=== PATIENT | female | born 1980 | race Caucasian/White ===

== ENCOUNTER 2019-06-17 12:51 | Emergency (ER) | payer OTHER ==
[~2019-06-17] VITALS: Ht 160 cm; Wt 90.7 kg
[~2019-06-17 12:51] MED LIST: ALPRAZOLAM1 MG PO; ANTIPYRINE-BENZ10 ML OTIC; BENADRYL25 MG PO; CETIRIZINE HCL10 MG PO; ESOMEPRAZOLE MAG; FLONASE2 SPRAY; IBUPROFEN800 MG PO; LANSOPRAZOLE30 MG PO; METFORMIN HCL1000 MG PO; NIACIN500 M1 PO; NORCO 5-325 TA1 EACH PO; PERCOCET 7.5-31 EACH PO; PRILOSEC20 MG PO; TRAZODONE HCL100 MG PO; ZOFRAN ODT4 MG PO
[2019-06-17] MEDS ORDERED: KEFLEX500 MG PO (17:29)
[2019-06-17] MEDS ORDERED: BACTRIM DS TAB1 EACH PO (17:29)
== END 2019-06-17 17:30 | disposition home or self-care (01) ==
LOC: ED 12:51
DX: L03.313 Cellulitis of chest wall (principal); F17.200 Nicotine dependence, unspecified, uncomplicated
CPT/HCPCS: 76604; 80053; 85025; 96374; 96375; 99283-25; J0690; J1885

== ENCOUNTER → 2020-10-17 | Emergency (ER) | payer OTHER ==
[~2020-10-17] VITALS: Ht 160 cm; Wt 81.6 kg
[~2020-10-17] MED LIST changes: +BACTRIM DS TAB1 EACH PO; +KEFLEX500 MG PO
--- NOTE | 2020-10-18 15:52 | EKG ---
[facility] [address] [address] [place], [place] [address] Signed Sinus tachycardia Otherwise normal ECG When compared with ECG of 12-NOV-2016 15:17, No significant change was found Confirmed by ERIK ROBIN DO ([id number]) on 10/18/2020 3:52:54 PM Electronically Signed By: ERIK ROBIN DO 10/18/20 1552 PATIENT NAME: OTONIEL JACKSON HANNA Electrocardiogram DATE OF : 76 PHYSICIAN: ERIK ROBIN DO REPORT #: [id number] REPORT IS CONFIDENTIAL AND NOT TO BE RELEASED WITHOUT AUTHORIZATION
== END ==
LOC: ED 20:14
DX: T45.0X1A Poisoning by antiallergic and antiemetic drugs, accidental (unintentional), initial encounter (principal); F17.200 Nicotine dependence, unspecified, uncomplicated
CPT/HCPCS: 80053; 80176; 81001; 84443; 84703; 85025; 93005; 93010; 99284-25

== ENCOUNTER 2021-11-07 07:36 | Emergency (ER) | payer OTHER ==
[~2021-11-07] VITALS: Ht 160 cm; Wt 99.1 kg
[2021-11-08] MEDS ORDERED: VENTOLIN HFA18 GM INH (16:25)
[2021-11-08] MEDS ORDERED: ADVIL200 MG PO (16:25)
[2021-11-08] MEDS ORDERED: PAXLOVID CO-PA1 EACH PO (18:58)
--- NOTE | 2021-11-11 13:41 | EKG ---
[facility] [address] [facility] [place], [place] [address] Signed Normal sinus rhythm Normal ECG When compared with ECG of 17-OCT-2020 20:31, No significant change was found Confirmed by GRETA FOLEY MD ([id number]) on 11/11/2021 1:41:05 PM Electronically Signed By: GRETA FOLEY MD 11/11/21 1341 PATIENT NAME: OTONIEL JACKSON HANNA Electrocardiogram DATE OF : 76 PHYSICIAN: GRETA FOLEY MD REPORT #: [id number] REPORT IS CONFIDENTIAL AND NOT TO BE RELEASED WITHOUT AUTHORIZATION
== END 2021-11-07 13:11 | disposition short-term general hospital (02) ==
LOC: ED 07:36
DX: U07.1 COVID-19 (principal); M54.14 Radiculopathy, thoracic region; F17.200 Nicotine dependence, unspecified, uncomplicated
CPT/HCPCS: 36415; 71045; 71260; 80048; 81001; 84484; 84703; 85025; 85379; 86140; 93005; 93010; 94640; 96375; 99285-25; C9803; J1170; J1885; J2060; Q9967; U0003

== ENCOUNTER 2021-11-08 15:32 | Emergency (ER) | payer OTHER ==
[~2021-11-08] VITALS: Ht 160 cm; Wt 99.1 kg
--- OUTSIDE RECORDS SUMMARY | 2021-11-08 15:42 | XMS ---
PreManage Notification: OTONIEL JACKSON [employer] Events 1 event(s) in the past 18 months Most recent security events: Elopement at [facility] 10/17/2020 20:15 - Other Details: PATIENT SHIRA PLASENCIA. CRITERIA MET - [facility] - 2 Visits in 30 Days CARE PROVIDERS ELVIRA SUTTON Current PHONE: [phone] Cheryl has no Care Guidelines for this patient. [facility] MO.) [facility] TOTAL 3 NOTE: Visits indicate total known visits. ED/UCC VISIT TRACKING (12 MO.) 11/08/2021 15:33 [facility] TYPE: Emergency COMPLAINT: - VOMITING, FEELING AWFUL C+ 11/07/2021 14:12 [facility] Lorna GALARZA TYPE: Emergency DIAGNOSES: - Lump - Dorsalgia, unspecified - back pain 11/07/2021 07:37 [facility] TYPE: Emergency COMPLAINT: - L SIDE RIB/BACK/ABDOMINAL PAIN INPATIENT VISIT TRACKING (12 MO.) No inpatient visits to display in this time frame [email or web address]
[2021-11-08] MEDS ORDERED: ADVIL200 MG PO (16:25)
[2021-11-08] MEDS ORDERED: VENTOLIN HFA18 GM INH (16:25)
--- NOTE | 2021-11-08 18:41 | NUR ---
Dispensed Paxlovid with directions to take 1 dose of 2 nirmatrelvir 300mg & 1 ritonivir 100mg BID x 5 days. Patient screened for drug interactions and renal function
[2021-11-08] MEDS ORDERED: PAXLOVID CO-PA1 EACH PO (18:58)
== END 2021-11-08 19:04 | disposition home or self-care (01) ==
LOC: ED 15:32
DX: U07.1 COVID-19 (principal); F17.200 Nicotine dependence, unspecified, uncomplicated
CPT/HCPCS: 99283

== ENCOUNTER 2022-07-10 11:42 | Emergency (ER) | payer OTHER ==
[~2022-07-10] VITALS: Ht 160 cm; Wt 100.0 kg
[~2022-07-10 11:42] MED LIST changes: +ADVIL200 MG PO; +PAXLOVID CO-PA1 EACH PO; +VENTOLIN HFA18 GM INH
[2022-07-10] MEDS ORDERED: HYDROCODON-ACE1 EA10 PO (13:13)
== END 2022-07-10 13:44 | disposition home or self-care (01) ==
LOC: ED 11:42
DX: S22.42XA Multiple fractures of ribs, left side, initial encounter for closed fracture (principal); F17.200 Nicotine dependence, unspecified, uncomplicated; Y04.8XXA Assault by other bodily force, initial encounter
CPT/HCPCS: 71101; 99283-25